=== PATIENT | female | born 1950 | race Caucasian/White ===

== ENCOUNTER 2016-05-30 22:10 | Emergency (ER) | payer OTHER, MEDICAID ==
[~2016-05-30] VITALS: Ht 154.9 cm; Wt 118.8 kg
[2016-05-30 22:10] VITALS: BP_SYST 170
[2016-05-30] MEDS ORDERED: ASPI-1063 PO (22:30)
[2016-05-30] MEDS ORDERED: LOSA100T11 PO (22:30)
[2016-05-30 23:06] LABS: BASOPHILS # (AUTO) 0.1 K/uL (0.0-0.2); BASOPHILS % (AUTO) 1.2 % (0.0-2.0); EOSINOPHILS # (AUTO) 0.6 K/uL (0.0-0.4); EOSINOPHILS % (AUTO) 5.7 % (0.0-4.0); HEMATOCRIT 38.8 % (36-48); HEMOGLOBIN 13.2 g/dL (12.0-16.0); LYMPHOCYTES # (AUTO) 2.4 K/uL (1.0-5.5); LYMPHOCYTES % (AUTO) 23.4 % (20.5-51.5); MEAN CORPUSCULAR HEMOGLOBIN 30 pg (27-31); MEAN CORPUSCULAR HGB CONC 34 % (32-36); MEAN CORPUSCULAR VOLUME 88 fL (79.0-98.0); MONOCYTES # (AUTO) 0.7 K/uL (0.0-1.0); MONOCYTES % (AUTO) 6.9 % (1.7-9.3); NEUTROPHILS # (AUTO) 6.6 K/uL (1.8-7.7); NEUTROPHILS % (AUTO) 62.8 % (40.0-70.0); PLATELET COUNT (AUTO) 235 K/uL (130-430); RED BLOOD CELL COUNT(AUTO) 4.39 MIL/uL (4.2-6.2); RED CELL DISTRIBUTION WIDTH 12.6 % (9.0-15.0); WHITE BLOOD COUNT (AUTO) 10.4 K/uL (4.8-10.8)
[2016-05-30 23:10] LABS: ANION GAP 3 (5-15); CALCIUM 9.7 mg/dL (8.4-11.0); CHLORIDE 102 mmol/L (98-107); CREATININE 0.89 mg/dL (0.55-1.30); GLUCOSE 119 mg/dL (70-99); POTASSIUM 3.6 mmol/L (3.5-5.1); SODIUM SERUM 134 mmol/L (136-145); UREA NITROGEN, BLOOD 21 mg/dL (8-21)
[2016-05-30 23:12] LABS: GFR AFRICAN AMERICAN 82 mL/min (>90)
[2016-05-30 23:16] LABS: PROTHROMBIN TIME 10.7 SECS (9.5-12.5)
[2016-05-30 23:17] LABS: ALANINE AMINOTRANSFERASE 23 U/L (12-78); ALBUMIN 3.7 g/dL (3.4-4.8); ASPARTATE AMINOTRANSFERASE 12 U/L (10-37); TOTAL BILIRUBIN 0.3 mg/dL (0.0-1.0); TOTAL PROTEIN, SERUM 8.1 g/dL (6.4-8.3)
[2016-05-30 23:20] LABS: BILIRUBIN,URINE NEGATIVE (NEGATIVE); CLARITY/URINE CLEAR (CLEAR); COLOR,URINE YELLOW (YELLOW); GLUCOSE,URINE NEGATIVE (NEGATIVE); KETONES,URINE NEGATIVE (NEGATIVE); LEUKOCYTE ESTERASE ,URINE NEGATIVE (NEGATIVE); NITRITE, URINE NEGATIVE (NEGATIVE); PH,URINE 5.5 (5.0-8.0); PROTEIN URINE NEGATIVE (NEGATIVE); UROBILINOGEN,URINE 0.2 (0.2-1.0)
[2016-05-30 23:21] LABS: ALCOHOL, BLOOD < 3 mg/dL (<10)
[2016-05-30 23:25] LABS: BLOOD, URINE TRACE (NEGATIVE)
[2016-05-30 23:49] LABS: BACTERIA,URINE RARE /HPF (None Seen); RBC,URINE 0-3 /HPF (0-3); WBC,URINE 0-3 /HPF (0-3)
[2016-05-30 23:50] LABS: MUCUS,URINE None Seen /LPF (None Seen)
[2016-05-31 00:25] VITALS: BP_SYST 162
== END 2016-05-31 00:25 | disposition home or self-care (01) ==
LOC: SED 22:10
DX: R53.1 Weakness (principal); R42 Dizziness and giddiness; Z88.0 Allergy status to penicillin; Z88.1 Allergy status to other antibiotic agents; Z86.79 Personal history of other diseases of the circulatory system
CPT/HCPCS: 36415; 71010; 80053; 81000; 82962; 83880; 84484; 85025; 85610; 93005; 99285; G0482